=== PATIENT | male | born 1965 | race Caucasian/White ===

== ENCOUNTER 2017-03-25 13:15 | Inpatient (IN) | payer OTHER ==
[~2017-03-25] VITALS: Ht 170.2 cm; Wt 105.7 kg
[2017-03-25] MEDS ORDERED: ORPHENADRINE C100 MG PO (17:27)
[2017-03-25] MEDS ORDERED: TRAMADOL HCL50 MG PO (17:27)
[2017-03-25] MEDS ORDERED: ETODOLAC500 MG PO (17:28)
[2017-03-25] MEDS ORDERED: ZESTRIL5 MG PO (17:28)
[2017-03-25 18:10] VITALS: BP 135/94
[2017-03-25 18:15] VITALS: Ht 170.2 cm; Wt 105.7 kg
[2017-03-25] MEDS ORDERED: LISINOPRIL5 MG PO (18:58)
[2017-03-25] MEDS ORDERED: OMEPRAZOLE20 M4 PO (18:59)
[2017-03-25] MEDS ORDERED: IBUPROFEN600 MG PO (18:59)
[2017-03-25 21:21] LABS: CALCIUM 8.2 mg/dL (8.5-10.1); CHLORIDE SERUM 103 mmol/L (98-107); CHOLESTEROL 137 mg/dL (<200); GFR1 > 60 mL/min; GLUCOSE SERUM 100 mg/dL (74-106); POTASSIUM SERUM 4.2 mmol/L (3.5-5.1); SODIUM SERUM 139 mmol/L (136-145); TRIGLYCERIDES 89 mg/dL (<150)
[2017-03-25 21:25] LABS: BASOPHIL % 0.4 % (0-2); PLATELET COUNT 184 x10^3mcL (130-400)
[2017-03-25 21:29] LABS: CHOLESTEROL/HDL RATIO 4.6; HDL CHOLESTEROL 30 mg/dL (40-60)
[2017-03-25 21:47] VITALS: BP 113/80
[2017-03-26 00:52] LABS: microscopic required? NO
[2017-03-26 01:08] LABS: UA SPECIFIC GRAVITY 1.015 (1.005-1.035); urine erythrocyte NEGATIVE (NEGATIVE)
[2017-03-26 06:01] VITALS: BP 103/72
[2017-03-26 08:07] LABS: FREE T4 1.24 ng/dL (0.76-1.46); FREE THYROXINE INDEX 3.4 ug/dL (1.4-4.5); T4(THYROXINE) 9.9 ug/dL (4.7-13.3)
[2017-03-26 08:08] LABS: T3 TOTAL 1.92 ng/mL
[2017-03-26 08:18] LABS: MAGNESIUM 1.9 mg/dL (1.8-2.4); PHOSPHOROUS 3.6 mg/dL (2.5-4.9)
[2017-03-26 08:20] LABS: AMPHETAMINE QUAL UR NONE DETECTED (NEG <=1000)
[2017-03-26 09:09] VITALS: BP 125/80
[2017-03-26 13:15] VITALS: BP 132/88
[2017-03-26 14:28] LABS: ALBUMIN 3.6 g/dL (3.4-5.0); BILIRUBIN DIRECT 0.11 mg/dL (0.0-0.2); BILIRUBIN TOTAL 0.85 mg/dL (0.20-1.00); TOTAL PROTEIN, SERUM 7.4 g/dL (6.4-8.2)
[2017-03-26 18:17] VITALS: BP 144/79
[2017-03-26 21:09] VITALS: BP 118/73
[2017-03-27 05:40] VITALS: BP 111/65
[2017-03-27] MEDS ORDERED: OSCD PO (08:37)
[2017-03-27] MEDS ORDERED: DEC4 PO (08:37)
[2017-03-27] MEDS ORDERED: APAP/HYDROCODON1 T13 PO (08:40)
[2017-03-27 09:37] VITALS: BP 120/76
[2017-03-27 11:13] VITALS: BP 120/76
== END 2017-03-27 11:42 | disposition home or self-care (01) | DRG 563 ==
LOC: ED 13:15 → DU 17:04
PROVIDERS: ADMIT Family Medicine
DX: S39.012A Strain of muscle, fascia and tendon of lower back, initial encounter (principal); J98.11 Atelectasis; I16.0 Hypertensive urgency; M51.36 Other intervertebral disc degeneration, lumbar region; E11.65 Type 2 diabetes mellitus with hyperglycemia; E83.51 Hypocalcemia; E03.9 Hypothyroidism, unspecified; Z68.36 Body mass index [BMI] 36.0-36.9, adult; Z87.891 Personal history of nicotine dependence; X50.0XXA Overexertion from strenuous movement or load, initial encounter; Y92.89 Other specified places as the place of occurrence of the external cause; Y99.0 Civilian activity done for income or pay
CPT/HCPCS: 20552; 82962; 83880; 84439; 94150; 97110-GP; 97116-GP; J1100; J2001; J2270; J2800; J7030; J8540; Q0092; Q0162